=== PATIENT | male | born 1955 | race Caucasian/White ===

== ENCOUNTER → 2017-12-28 | Outpatient (CLI) | payer OTHER ==
--- NOTE | 2017-12-29 10:43 | PCVCIMAG ---
APPROVED REPORT Study performed: 12/28/2017 15:52:55 EXAM: Comprehensive 2D, Doppler, and color-flow Echocardiogram Patient Location: Echo lab Status: routine BSA: 1.71 HR: 84 bpmBP: 130/80 mmHg Rhythm: Pacemaker Other Information Study Quality: Good Risk Factors: Cardiac Risk Factors: HTN, Hyperlipidemia Indications Pacemaker AV Block 2D Dimensions IVSd: 10.53 (7-11mm)LVOT Diam: 20.00 (18-24mm) LVDd: 47.72 mm PWd: 11.17 (7-11mm)Ascending Ao: 29.33 (22-36mm) LVDs: 38.05 (25-40mm) Left Atrium: 33.18 (27-40mm) Aortic Root: 31.52 mm LV Single Plane 4CH: 34.87 % LV Single Plane 2CH: 47.01 % Biplane EF: 42.0 % Volumes Left Atrial Volume (Systole) Single Plane 4CH: 59.79 mLSingle Plane 2CH: 49.74 mL LA ESV Index: 34.00 mL/m2 Aortic Valve AoV Peak Deejay.: 1.51 m/s AO Peak Gr.: 9.48 mmHgLVOT Max P.95 mmHg LVOT Max V: 0.95 m/s STEVAN Vmax: 1.90 cm2 AI Vmax: 3.76 m/s AI [place]: 1.54 m/s2 AI PHT: 785.26 ms Mitral Valve E/A Ratio: 1.8 MV Decel. Time: 132.24 ms MV E Max Deejay.: 1.12 m/s MV A Deejay.: 0.63 m/s IVRT: 58.82 ms TDI E/Lateral E': 11.20E/Medial E': 28.00 Medial E' Deejay.: 0.04 m/s Lateral E' Deejya.: 0.10 m/s Pulmonary Valve PV Peak Deejay.: 1.09 m/sPV Peak Gr.: 4.75 mmHg Tricuspid Valve TR Peak Deejay.: 2.07 m/sRAP Estimate: 7.00 mmHg TR Peak Gr.: 17.20 mmHg PA Pressure: 25.00 mmHg Left Ventricle The left ventricle is normal size. Septal wall motion abnormalities may represent RV pacing Borderline concentric left ventricular hypertrophy. Left ventricular systolic function is mildly decreased. LVEF is 40-45%. The left ventricular diastolic function is normal. Right Ventricle The right ventricle is normal size. The right ventricular systolic function is normal. Pacemaker lead is present in the right ventricle. Atria The left atrium size is normal. The right atrium size is normal. Aortic Valve The aortic valve is normal in structure. Moderate aortic regurgitation. There is no aortic valvular stenosis. Mitral Valve The mitral valve is normal in structure. Moderate to severe mitral regurgitation. No evidence of mitral valve stenosis. Tricuspid Valve The tricuspid valve is normal in structure. Trace tricuspid regurgitation. Pulmonary artery pressure is 25 mmHg. Pulmonic Valve The pulmonary valve is normal in structure. Mild pulmonic regurgitation. Great Vessels The aortic root is normal in size. IVC is normal in size and collapses >50% with inspiration. Pericardium There is no pericardial effusion. <Conclusion> The left ventricle is normal size. Septal wall motion abnormalities may represent RV pacing The aortic valve is normal in structure. Moderate aortic regurgitation. The mitral valve is normal in structure. Moderate to severe mitral regurgitation. The tricuspid valve is normal in structure. Trace tricuspid regurgitation. Pulmonary artery pressure is 25 mmHg. The pulmonary valve is normal in structure. Mild pulmonic regurgitation. There is no pericardial effusion.
== END | disposition home or self-care (01) ==
LOC: PCVCIMAG 16:56
PROVIDERS: ATTEND Internal Medicine
DX: I08.0 Rheumatic disorders of both mitral and aortic valves (principal); I10 Essential (primary) hypertension; I73.9 Peripheral vascular disease, unspecified
CPT/HCPCS: 93306

== ENCOUNTER → 2018-01-11 | Outpatient (CLI) | payer OTHER ==
--- NOTE | 2018-01-11 19:30 | PCVCIMAG ---
EXAM: NONINVASIVE ARTERIAL EXAMINATION OF BOTH LOWER EXTREMITIES INCLUDING PRE AND POST EXERCISE PRESSURE MEASUREMENTS AND DOPPLER WAVEFORMS INDICATION: Peripheral Arterial Disease. Leg pain. FINDINGS: Right Brachial: 98 mm Hg. Right Dorsalis Pedis: 123 mm Hg. Right Posterior Tibial: 145 mm Hg. Right CARLA = 1.39. Left Brachial: 104 mm Hg. Left Dorsalis Pedis: 134 mm Hg. Left Posterior Tibial: 151 mm Hg. Left CARLA = 1.45. Post Exercise: Left Brachial 115 mm Hg. Right Posterior Tibial: 135 mm Hg. Left Posterior Tibial: 153 mm Hg. Right CARLA = 1.17. Left CARLA = 1.33. IMPRESSION: No resting ischemia in the right lower extremity. No exercise induced ischemia in the right lower extremity. No resting ischemia in the left lower extremity. No exercise induced ischemia in the left lower extremity. LOC:[id number]
--- NOTE | 2018-01-11 19:33 | PCVCIMAG ---
EXAM: BILATERAL LOWER EXTREMITY ARTERIAL DUPLEX INDICATION: Peripheral Arterial Disease. Leg pain. FINDINGS: Right Leg: Satisfactory arterial waveforms throughout the common/profunda/superficial femoral, popliteal, anterior tibial, peroneal, and posterior tibial arteries. No flow limiting stenosis seen. Left Leg: Satisfactory arterial waveforms throughout the common/profunda/superficial femoral, popliteal, anterior tibial, peroneal, and posterior tibial arteries. No flow limiting stenosis seen. IMPRESSION: No flow limiting stenosis in the right lower extremity. No flow limiting stenosis in the left lower extremity. LOC:[id number]
== END | disposition home or self-care (01) ==
LOC: PCVCIMAG 13:09
PROVIDERS: ATTEND Internal Medicine
DX: I73.9 Peripheral vascular disease, unspecified (principal)
CPT/HCPCS: 93923; 93925; 93924